=== PATIENT | male | born 1990 | race Two or more races ===

== ENCOUNTER 2020-03-09 11:05 | Emergency (ER) | payer OTHER ==
[~2020-03-09] VITALS: Ht 165.1 cm; Wt 74.6 kg
--- NOTE | 2020-03-09 11:56 | NUR ---
report to anamaria
[2020-03-09] MEDS ORDERED: SODIUM CHLORIDE FLUSH 10ML SYR IVF ONE (12:00)
[2020-03-09] MEDS ORDERED: SODIUM CHLORIDE 0.9% 1,000ML IVBOLUS ONE (12:00)
--- NOTE | 2020-03-09 12:14 | NUR ---
LABS & BC DRAWN, CXR & EKG DONE AT BS. IV BOLUS INFUSING. RV'WD POC WITH PT, HE VERBALIZES UNDERSTANDING.
[2020-03-09 12:23] LABS: BASOPHILS # (AUTO) 0.02 x10^3/uL (0-0.1); BASOPHILS % (AUTO) 0 % (0-1); EOSINOPHILS # (AUTO) 0.01 x10^3/uL (0-0.4); EOSINOPHILS % (AUTO) 0 % (1-7); LYMPHOCYTES # (AUTO) 1.82 x10^3/uL (1-3.4); LYMPHOCYTES % (AUTO) 27 % (22-44); MD NO; MEAN CORPUSCULAR HEMOGLOBIN 28.9 pg (27.5-34.5); MEAN CORPUSCULAR HGB CONC 32.8 g/dL (33.2-36.2); MEAN CORPUSCULAR VOLUME 88.1 fL (81-97); MEAN PLATELET VOLUME 8.2 fL (7.4-10.4); MONOCYTES % (AUTO) 9 % (2-9); NEUTROPHILS # (AUTO) 4.37 x10^3/uL (1.8-6.8); NEUTROPHILS % (AUTO) 64 % (42-75); PLATELET COUNT 200 x10^3/uL (130-400); RED BLOOD COUNT 6.55 x10^6/uL (4.38-5.82); RED CELL DISTRIBUTION WIDTH 14.3 % (9.4-14.8)
[2020-03-09 12:36] LABS: CHLORIDE 105 mmol/L (98-107)
[2020-03-09 12:52] LABS: ALANINE AMINOTRANSFERASE 49 U/L (12-78); ALBUMIN 4.4 g/dL (3.4-5.0); ALKALINE PHOSPHATASE 93 U/L (45-117); ANION GAP 4 mmol/L (5-15); BILIRUBIN,TOTAL 0.3 mg/dL (0.2-1.0); CALCIUM 9.4 mg/dL (8.5-10.1); CREATININE 1.19 mg/dL (0.7-1.3); TOTAL PROTEIN 8.9 g/dL (6.4-8.2)
--- NOTE | 2020-03-09 13:00 | NUR ---
PT AMBULATED TO BR WITHOUT DIFFICULTY. STATES HE FEELS A LITTLE BETTER AFTER 1L BOLUS. HR REMAINS IN 100s.
[2020-03-09 13:11] LABS: MICROSCOPIC AUTO
--- NOTE | 2020-03-09 14:00 | NUR ---
WATER PROVIDED TO PT. CHART UP FOR RECHECK. TEMP 100.0, HR REMAINS 100s.
--- NOTE | 2020-03-09 14:59 | NUR ---
ERP WAS IN FO RECHECK. 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
[2020-03-09 15:56] VITALS: BP 125/83
--- NOTE | 2020-03-09 16:00 | NUR ---
PT WAS REQUESTING TRAMADOL RX FOR BACK PAIN. ERP NOTIFIED. PT INFORMED TO TAKE TYLENOL OR IBUPROFEN FOR PAIN/FEVER. INSTRUCTED PT TO F/U WITH PCP (REFERRALS PROVIDED) IF SYMPTOMS PERSIST. D/C INSTRUCTIONS & F/U APPT RV'WD WITH PT, HE VERBALIZES UNDERSTANDING. PT AMBULATED OUT OF ED WITHOUT DIFFICULTY. STATES HE WILL TAKE BUS HOME.
== END 2020-03-09 16:00 | disposition home or self-care (01) ==
LOC: ED 12:23
DX: R50.9 Fever, unspecified (principal); R61 Generalized hyperhidrosis; R00.0 Tachycardia, unspecified; R53.83 Other fatigue
CPT/HCPCS: 36415; 71045; 80053; 81001; 83605; 84443; 85025; 87040; 93005; 96360; 99285; J7030

== ENCOUNTER 2020-08-09 18:40 | Emergency (ER) | payer SELFPAY ==
[~2020-08-09] VITALS: Ht 165.1 cm; Wt 78.6 kg
--- NOTE | 2020-08-09 18:59 | NUR ---
PT COMES IN BY BUS. PER PT HE HAS HAD BUMPS ON HIS ARMS FOR PAST 7 YEARS, BUT RECENTLY FOUND A NEW ONE ON HIS RIGHT FOREARM. PT IS ALSO COMPLAINING OF BILAT WRIST PAIN. PT DENIES ANY TRAUMA TO WRISTS OR ARMS. PT RESTING IN [facility] PA AT BEDSIDE.
[2020-08-09 20:25] VITALS: BP 125/83
--- NOTE | 2020-08-09 20:48 | NUR ---
this tech went in to apply wrist lacers but pt. requested not to have them applied. Pt. notified how to apply wrist lacers and told about possible complications.
[2020-08-09] MEDS ORDERED: IBUPROFEN 600 MG TABLET ONE (20:55)
[2020-08-09] MEDS ORDERED: ACETAMINOPHEN 325 MG TABLET ONE (20:55)
[2020-08-09] MEDS ORDERED: ACETAMINOPHEN 325 MG TABLET PO ONE (21:00)
[2020-08-09] MEDS ORDERED: IBUPROFEN 600 MG TABLET PO ONE (21:00)
== END 2020-08-09 21:03 | disposition home or self-care (01) ==
LOC: ED 20:04
DX: S62.002A Unspecified fracture of navicular [scaphoid] bone of left wrist, initial encounter for closed fracture (principal); M25.531 Pain in right wrist; X58.XXXA Exposure to other specified factors, initial encounter; Y93.89 Activity, other specified; Y92.89 Other specified places as the place of occurrence of the external cause; Y99.8 Other external cause status
CPT/HCPCS: 29125; 99283

== ENCOUNTER 2020-10-28 12:10 | Emergency (ER) | payer SELFPAY ==
[~2020-10-28] VITALS: Ht 165.1 cm; Wt 78.3 kg
[2020-10-28 12:12] VITALS: BP 138/91
--- NOTE | 2020-10-28 12:17 | NUR ---
PT AMBULATED TO ROOM WITH STEADY GAIT. PT IN ROOM CHANGING INTO GOWN.
--- NOTE | 2020-10-28 12:25 | NUR ---
PT C/O MULTIPLE LUMPS ON ARMS, THAT HAVE BEEN INCREASING IN SIZE OVER TIME. PT C/O LUMP IN RIGHT GROIN THAT IS CAUSING LITTLE PAIN. PT CONNECTED TO MONITORING. CALL LIGHT IN REACH. MD RESIDENT AT BEDSIDE.
--- NOTE | 2020-10-28 13:02 | NUR ---
XRAY COMPLETE. LAB AT BEDSIDE.
[2020-10-28 13:13] LABS: BASOPHILS % (AUTO) 0 % (0-1); EOSINOPHILS % (AUTO) 2 % (1-7); LYMPHOCYTES % (AUTO) 42 % (22-44); MEAN CORPUSCULAR HEMOGLOBIN 29.5 pg (27.5-34.5); MEAN CORPUSCULAR HGB CONC 33.9 g/dL (33.2-36.2); MONOCYTES % (AUTO) 8 % (2-9); NEUTROPHILS % (AUTO) 48 % (42-75); PLATELET COUNT 245 x10^3/uL (130-400); RED BLOOD COUNT 5.53 x10^6/uL (4.38-5.82); RED CELL DISTRIBUTION WIDTH 13.9 % (9.4-14.8)
[2020-10-28 13:14] LABS: MD NO
[2020-10-28 13:22] LABS: ALANINE AMINOTRANSFERASE 66 U/L (12-78); ALBUMIN 4.1 g/dL (3.4-5.0); CALCIUM 9.2 mg/dL (8.5-10.1); CREATININE 0.99 mg/dL (0.7-1.3)
[2020-10-28 13:24] LABS: ALKALINE PHOSPHATASE 87 U/L (45-117); BILIRUBIN,TOTAL 0.3 mg/dL (0.2-1.0); TOTAL PROTEIN 7.5 g/dL (6.4-8.2)
[2020-10-28 13:29] LABS: ANION GAP 4 mmol/L (5-15); CHLORIDE 105 mmol/L (98-107)
--- NOTE | 2020-10-28 13:38 | NUR ---
ALL RESULTS ARE BACK AT THIS TIME. CHART UP FOR RECHECK.
== END 2020-10-28 14:47 | disposition home or self-care (01) ==
LOC: ED 14:07
DX: I88.1 Chronic lymphadenitis, except mesenteric (principal); F17.210 Nicotine dependence, cigarettes, uncomplicated
CPT/HCPCS: 36415; 71046; 80053; 85025; 87806; 99284; G0475

== ENCOUNTER 2020-11-30 17:52 | Emergency (ER) | payer SELFPAY ==
[~2020-11-30] VITALS: Ht 170.2 cm; Wt 77.9 kg
--- NOTE | 2020-11-30 19:52 | NUR ---
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 TO ROOM FROM LOBBY AT THIS TIME.
--- NOTE | 2020-11-30 19:56 | NUR ---
Task RN: Urine collected and sent to lab.
--- NOTE | 2020-11-30 20:08 | NUR ---
PT AMBULATED TO ROOM FROM LOBBY. PT CO RIGHT GROIN PAIN X3 DAYS. PT DENIES ANY REDNESS, SWELLING, FEVER, N/V/D OR PAINFUL URINATION. PT STATED THAT HE HAS HAD THIS PAIN INTERMITTENTLY OVER THE PAST MONTH, BUT HAS GOTTEN SEVERE OVER THE PAST 3 DAYS. PT HAS BEEN TAKING TYLENOL FOR PAIN.
[2020-11-30 20:22] LABS: MICROSCOPIC NOT IND
--- NOTE | 2020-11-30 20:55 | NUR ---
REPORT GIVEN TO GLEN EZLAYA
--- NOTE | 2020-11-30 21:13 | NUR ---
ULTRASOUND AT BEDSIDE NOW.
[2020-11-30 22:08] VITALS: BP 139/93
--- NOTE | 2020-11-30 22:19 | NUR ---
I CHAPERONED WITH DR GONZALES HE SUCCESSFULLY REDUCED PT HERNIA. PT DENYING PAIN NOW. PT TO BE DISCHARGED WITH REFERAL TO GEN SURG. PT EDUCATED ON THIS AND VERBALIZED UNDERSTANDING.
== END 2020-11-30 22:32 | disposition home or self-care (01) ==
LOC: ED 21:13
DX: K40.91 Unilateral inguinal hernia, without obstruction or gangrene, recurrent (principal)
CPT/HCPCS: 76857; 81003; 99284

== ENCOUNTER 2021-03-14 17:35 | Emergency (ER) | payer SELFPAY ==
[~2021-03-14] VITALS: Ht 165.1 cm; Wt 77.0 kg
[2021-03-14 19:03] LABS: MICROSCOPIC INDICATED
[2021-03-14] MEDS ORDERED: IBUP-1902 PO (19:03)
[2021-03-14] MEDS ORDERED: ACET325C6 PO (19:03)
[2021-03-14] MEDS ORDERED: BUPIVACAINE 0.25% ONE (20:01)
[2021-03-14] MEDS ORDERED: LIDOCAINE 1%-EPI 1:100K, 20ML ONE (20:01)
[2021-03-14 20:51] VITALS: BP 94/64
== END 2021-03-14 20:53 | disposition home or self-care (01) ==
LOC: ED 17:50
DX: K04.7 Periapical abscess without sinus (principal); R10.31 Right lower quadrant pain
CPT/HCPCS: 64400; 76857; 81001; 99284